=== PATIENT | female | born 1950 | race Caucasian/White ===

== ENCOUNTER → 2016-05-27 | Day surgery (SDC) | payer MEDICARE ==
[~2016-05-27] MED LIST: BELLADONNA ALKALOIDS/OPIUM 60 MG SUPP ONE; ESTR42.5V PV; FUROSEMIDE 20 MG/2 ML VIAL ONE; GENTAMICIN SULFATE 80 MG/2 ML VIAL ONE; LACTATED RINGER'S 1,000 ML BAG IV ONE; LACTATED RINGER'S 1000 ML INJ 1,000 ML ONE; LIDOCAINE HCL 2% JELLY 5 ML SYRINGE ONE; MIDAZOLAM HCL 2 MG/2 ML VIAL ONE; ONDANSETRON HCL 4 MG/2 ML VIAL IV PUSH ONE; PROPOFOL 100 MG/10 ML INJ IV ONE; SODIUM CHLORIDE 0.9% 20 ML VIAL ONE; SODIUM CHLORIDE 0.9% SOLN 100 ML (PAB) BAG IV ONE
--- NOTE | 2016-05-27 15:33 | TN ---
cc: SHIRLEY BARNES M.D. DATE OF SURGERY 05/27/2016 PREOPERATIVE DIAGNOSES 1. Proximal left ureteral calculus. 2. Thickening of the left ureterovesical junction. POSTOPERATIVE DIAGNOSES 1. Left ureterovesical junction calculus. 2. Left ureteral orifice tumor. PROCEDURE 1. Cystourethroscopy with left ureteroscopic holmium laser lithotripsy and stone basket manipulation (CPT code 58421). 2. Transurethral resection of bladder tumor (TURBT) (CPT code 56873). INDICATIONS Ms. Chacon is a 65-year-old woman with intermittent gross hematuria who was found on CT urography to have a 5 x 9-mm proximal left ureteral stone and some thickening of the left ureterovesical junction and orifice who presents now for definitive treatment. FINDINGS 1. Normal urethra. 2. The right ureteral orifice of normal size, shape and position. 3. The left ureteral orifice is not identified due to overlying what appears to be edematous lesion of the distal ureter. 4. The remainder of the bladder shows no trabeculation, diverticula, cellules, other lesions, tumors or abnormalities and no calcifications. 5. The ureteroscopic evaluation shows the large distal left ureteral calculus with dilatation of the entire collecting system all the way to the ureteropelvic junction. 6. No additional stones were identified or lesions within the ureter. PROCEDURE The procedure as well as risks and benefits were explained to the patient and informed consent was obtained. The patient was taken to the major operative theater where she was placed in supine position. The patient was identified as well as the operative site. A universal time-out was performed in standard fashion. At this time general anesthetic and prophylactic intravenous antibiotics consisting of gentamicin 80 mg was administered. After adequate anesthetic, she was placed in low dorsal lithotomy position, prepped and draped in the usual sterile fashion. At this time a 22.5 Welsh obturator and sheath were placed into the bladder. The obturator was removed and a 30-degree lens cystoscope. This was exchanged for the 70-degree lens cystoscope and the entire bladder was systematically surveyed with the above findings. At this time the left ureteral orifice could not be identified due to the overlying lesion and we had planned on just taking a biopsy but since we could not find the orifice a decision was made to perform a resection of the distal ureter and tumor. At this time the cystoscope was removed and an Fernandes resectoscope with a right-angle bladder loop and using normal saline and the Gyrus system, the distal ureter and tumor were resected and sent for final pathological evaluation. As soon as we resected that, a portion of the stone could be seen in the distal ureter. At this time the resectoscope was removed after confirming hemostasis. Care was taken not to fulgurate the ureteral orifice and then a cystoscope was placed back into the bladder. Attention was directed to the orifice where a 0.035-inch Hybrid wire was placed and then a 0.035-inch Standard wire up the ureter under fluoroscopic guidance and into the renal pelvis. The one wire was used as a safety wire and the second as a working wire. The cystoscope was then removed and a semi-rigid mini-ureteroscope was placed within the working wire and the stone was identified in the distal ureter. At this time the Guidewire was removed and a 365 micron holmium laser fiber was placed at a setting of 10. Holmium laser lithotripsy was performed in standard fashion until the stone fragments were very small. At this time a 0-tip Nitinol basket was used to basket out all of the fragments. The ureteroscope was then placed all the way to the ureteropelvic junction. There was no additional abnormalities or lesions. There was very dilated ureter. At this time, after confirming hemostasis, the ureteroscope was removed and the cystoscope was placed back into the bladder. The stone fragments that were basketed out was removed and sent for crystallographic evaluation. There was an additional tumor fragment which was also sent along with the previous resection for final pathological evaluation. There was some mild oozing at the area of the orifice but the ureter was effluxing clear urine. Decision was not to place a stent or do any additional fulguration. At this time the cystoscope was removed. A Uro-Jet lidocaine was injected as well as a belladonna and opioid suppository placed in the rectum. The patient tolerated the procedure well and emerged from anesthetic without difficulty and transferred to the recovery room in stable condition to be discharged home when criteria is met. There were no obvious complications. MD MARY ANNE ySed/COLLEEN /2:20 PM /3:19 PM
== END | disposition home or self-care (01) ==
LOC: ESDC 08:48
PROVIDERS: ATTEND Urology
DX: N20.1 Calculus of ureter (principal); C67.6 Malignant neoplasm of ureteric orifice
CPT/HCPCS: 00912; 52234; 52353; 76000; 88305; C1769; J1580; J1940; J2250; J2405; J3010; J7120